=== PATIENT | male | born 1940 | race Caucasian/White ===

== ENCOUNTER 2016-08-14 09:59 | Emergency (ER) | payer OTHER ==
[2016-08-14 10:19] VITALS: BP 163/78
== END 2016-08-14 10:42 | disposition left against medical advice (07) ==
LOC: ED 09:59
DX: Z53.21 Procedure and treatment not carried out due to patient leaving prior to being seen by health care provider (principal)

== ENCOUNTER 2021-12-12 16:38 | Outpatient (CLI) | payer MEDICARE, BC ==
--- NOTE | 2021-12-13 10:14 | XRAY Report ---
PROCEDURE: Abdomen 2 View X-Ray INDICATIONS: XRAY ABD TECHNIQUE: 2 views of the abdomen were acquired. COMPARISON: None FINDINGS: Surgical changes and devices: None. Bowel: No pneumoperitoneum. The bowel gas pattern is normal. Normal quantity of stool. No signific ant obstipation seen. Soft tissues: No masses; visualized solid organ contours appear normal in size. No suspicious abdom inal calcifications. Bones: No suspicious bony abnormalities. Multilevel degenerative disc and endplate spurring througho ut the thoracolumbar spine. Facet degeneration in the lower lumbar spine. Coarse ovoid calcification projects over the upper sacrum, uncertain etiology. Mild degenerative change in both hip joints. IMPRESSION: 1. Normal bowel gas pattern without significant obstipation. Reviewed by: Sara Anthony MD on 12/13/2021 10:13 AM PDT Approved by: Sara Anthony MD on 12/13/2021 10:13 AM PDT Station ID: [id number]
== END 2021-12-12 16:39 | disposition home or self-care (01) ==
LOC: DI.S 16:38
PROVIDERS: ATTEND Nurse Practitioner Family
DX: R19.7 Diarrhea, unspecified (principal)

== ENCOUNTER 2021-12-22 12:00 | Outpatient (CLI) | payer MEDICARE, BC | END 2021-12-22 23:59 | disposition home or self-care (01) | LOC: LAB.R 12:00 | PROVIDERS: ATTEND Nurse Practitioner Family | DX: R19.8 Other specified symptoms and signs involving the digestive system and abdomen (principal); R15.2 Fecal urgency | CPT/HCPCS: 87045; 87046; 87427 ==